=== PATIENT | male | born 1940 | race Caucasian/White ===

== ENCOUNTER → 2019-02-11 | Outpatient (CLI) | payer MEDICARE, OTHER ==
[~2019-02-11] MED LIST: ASPIRIN 81M81 MG/TA2 PO; FISH OIL1000 MG PO; FLOMAX 0.40.4 MG/CAP PO; LEVITRA20 MG PO; MELATONIN5 M1 SL; MURO-128 30 ML30 ML OP; NORCO 325 MG-7.1 TAB PO; PROSCAR 5MG5 MG PO; VIAGRA100 M1 PO
== END ==
LOC: COL.RAD 13:03
DX: N28.1 Cyst of kidney, acquired (principal); N39.0 Urinary tract infection, site not specified

== ENCOUNTER 2024-02-02 18:29 | Inpatient (IN) | payer MEDICARE, OTHER ==
[~2024-02-02] VITALS: Ht 172.7 cm; Wt 67.5 kg
[2024-02-02] MEDS ORDERED: NS 1,000 ML IV ONE ×2 (19:00→20:15)
[2024-02-02 19:41] LABS: MEAN CELL VOLUME 85 fl (80.0-100.0); MEAN CORPUSCULAR HEMOGLOBIN 31 pg (27-31); MEAN CORPUSCULAR HGB CONC 37 g/dl (33.0-37.0); MEAN PLATELET VOLUME 9.2 fl (7.4-10.4); PLATELET COUNT 196 K/mm3 (130-400); RED BLOOD COUNT 3.56 M/mm3 (4.20-5.60); REDCELL DISTRIBUTION WIDTH-CV 13.7 % (11.5-14.5)
[2024-02-02 19:57] LABS: ALBUMIN 3.1 g/dL (3.4-4.8); C-REACTIVE PROTEIN 15.35 mg/dL (0.00-0.50); CALCIUM 8.9 mg/dL (8.4-10.2); CREATININE, serum 1.25 mg/dL (0.72-1.25); POTASSIUM 4.3 mEq/L (3.5-4.5); TOTAL PROTEIN 6.2 g/dl (6.2-8.1)
[2024-02-02 19:59] LABS: HEMATOCRIT 30.1 % (42.0-52.0)
[2024-02-02 20:03] LABS: TROPONIN-I 0.012 ng/mL (0.00-0.033)
[2024-02-02 20:10] LABS: LYMPHOCYTE 5 % (20.0-51.0); NEUTROPHILS 82 % (42.0-75.2)
[2024-02-02] MEDS ORDERED: ZOCOR 40MG40 MG PO (21:17)
[2024-02-02] MEDS ORDERED: COZAAR 50MG50 MG/TAB PO (21:18)
[2024-02-02] MEDS ORDERED: cefTRIAXone 1 G in Water For Injection,Sterile 10 ML IV ONE (21:30)
[2024-02-02] MEDS ORDERED: Doxycycline Hyclate 100 MG in NS 150 ML IV ONE (21:30)
[2024-02-02 21:47] LABS: PH 5.5 (5.0-8.5); URINE APPEARANCE CLEAR (CLEAR/HAZY); URINE BLOOD 1+ (NEGATIVE); URINE COLOR Dark Yellow (YELLOW); URINE GLUCOSE NEGATIVE (NEGATIVE); URINE KETONE 1+ (NEGATIVE); URINE NITRATE NEGATIVE (NEGATIVE); URINE PROTEIN(semi-quant) 1+ (NEGATIVE)
[2024-02-02 21:59] LABS: COLLECTION METHOD CLEAN CATCH
[2024-02-02 22:00] LABS: MUCOUS PRESENT (NOT PRESENT); URINE BACTERIA RARE /hpf (NONE SEEN); URINE RBC NONE SEEN /hpf (0-2)
[2024-02-02 22:15] LABS: CALCIUM 8.2 mg/dL (8.4-10.2); CREATININE, serum 0.99 mg/dL (0.72-1.25)
[2024-02-02] MEDS ORDERED: NS 1,000 ML IV SCH (23:30)
[2024-02-02 23:48] VITALS: BP 127/65; PULSE 87; TEMP 98.6
[2024-02-03] VITALS (9 sets, daily range): BP systolic 114–154; BP diastolic 56–70; PULSE 87–102; TEMP 97.9–98.7
[2024-02-03] MEDS ORDERED: Acetaminophen 325 MG TAB PO PRN (00:15)
[2024-02-03 00:46] LABS: CALCIUM 8.1 mg/dL (8.4-10.2); CREATININE, serum 0.93 mg/dL (0.72-1.25); POTASSIUM 4.1 mEq/L (3.5-4.5)
--- NOTE | 2024-02-03 00:55 | NUR ---
Patient arrived to the floor at 2347 per cart from the ED, A/O but hard of hearing, on room air, denies pain or discomfort, admission assessment and intake done, medrec reviewed, hospital policies orientated, call light and personal items within reach, fall precautions in place, will continue to monitor.
[2024-02-03] MEDS ORDERED: Albuterol/Ipratropium 3 MG-0.5 MG/3 ML Neb Soln IH SCH (02:00)
[2024-02-03 05:12] LABS: CALCIUM 7.8 mg/dL (8.4-10.2); CREATININE, serum 0.82 mg/dL (0.72-1.25)
[2024-02-03] MEDS ORDERED: Doxycycline Monohydrate 100 MG CAP PO SCH (07:00)
[2024-02-03] MEDS ORDERED: SODIUM CHLORIDE 5% OP SCH (09:00)
[2024-02-03] MEDS ORDERED: predniSONE 20 MG TAB PO SCH (09:00)
[2024-02-03] MEDS ORDERED: Pantoprazole 40 MG in NS 10 ML IV SCH (09:00)
--- NOTE | 2024-02-03 09:35 | NUR ---
Patient is resting in bed, alert and oriented x 4, Dr Byers just saw him. Fluids restriction 1500 mls per day placed. Assessment completed. No other needs at this time. Call light within reach.
--- NOTE | 2024-02-03 12:48 | NUR ---
Data: Patient declined Spiritual Care visit offered during Service Cashier rounds. Patient did request help moving his food, which was on the bedside table, closer to him so that he could eat. Assessment: Patient was now ready to eat. Plan of Care: Service Cashier assisted in putting the bedside table in a position so that Patient was able to eat. Patient declined offer of prayer, opting to pray for himself, which he did before eating. Chaplains will remain available as needed/requested while Patient is admitted to the hospital.
--- NOTE | 2024-02-03 19:50 | NUR ---
Patient assessed at this time, see shift assessment, hard of hearing but very pleasant, denies pair of discomfort, still with IV infusing well on right forearm, INT to left hand infusing well, denies further needs, call light and personal items within reach, will continue to monitor.
[2024-02-03] MEDS ORDERED: Atorvastatin 20 MG TAB PO SCH (21:00)
[2024-02-03] MEDS ORDERED: Simvastatin 40 MG **** subs to Atorvastatin 20 MG PO SCH (21:00)
[2024-02-03] MEDS ORDERED: cefTRIAXone 1 G in Water For Injection,Sterile 10 ML IV SCH (21:00)
[2024-02-03 22:07] LABS: CALCIUM 7.5 mg/dL (8.4-10.2); CREATININE, serum 0.8 mg/dL (0.72-1.25); POTASSIUM 4.3 mEq/L (3.5-4.5)
[2024-02-03] MEDS ORDERED: Albuterol/Ipratropium 3 MG-0.5 MG/3 ML Neb Soln IH PRN (23:45)
[2024-02-04] VITALS (12 sets, daily range): BP systolic 102–158; BP diastolic 57–73; PULSE 78–97; TEMP 97.7–98.5
[2024-02-04 07:02] LABS: MEAN CELL VOLUME 86 fl (80.0-100.0); MEAN CORPUSCULAR HGB CONC 36 g/dl (33.0-37.0); MEAN PLATELET VOLUME 9.4 fl (7.4-10.4); PLATELET COUNT 200 K/mm3 (130-400); RED BLOOD COUNT 3.12 M/mm3 (4.20-5.60); REDCELL DISTRIBUTION WIDTH-CV 13.7 % (11.5-14.5)
[2024-02-04 07:05] LABS: HEMATOCRIT 26.7 % (42.0-52.0); HEMOGLOBIN 9.6 g/dl (13.5-18.0); MEAN CORPUSCULAR HEMOGLOBIN 31 pg (27-31)
[2024-02-04 07:08] LABS: CALCIUM 7.6 mg/dL (8.4-10.2); CREATININE, serum 0.73 mg/dL (0.72-1.25); POTASSIUM 3.7 mEq/L (3.5-4.5)
[2024-02-04 07:48] LABS: BAND 1 % (0-10); EOSINOPHIL 1 % (0-4); LYMPHOCYTE 12 % (20.0-51.0); NEUTROPHILS 83 % (42.0-75.2); PLATELET ESTIMATE NORMAL (NORMAL)
--- NOTE | 2024-02-04 08:23 | NUR ---
Late Entry: SW met with patient on 02/03/24 and called patient's daughter Maira to complete initial assessment for discharge planning, Note not showing in chart. Note re-entered today. SW met with patient to complete initial assessment for discharge planning. Patient stated he lives at home with his Mike ([phone]) who he also states is his DPOA. Patient states his sister in law Michelle is his alternate DPOA. Patient sees Dr. Carbajal as his PCP and uses [facility]. Pt denies using any DME and states he is independent and still drives. SW later called patient's daughter Maira ([phone]) to discuss discharge planning. She states that she and her son live with patient and his who has Alzheimer's dementia. Maira states that is not able to be DPOA and she and her sister Comfort ([phone]) are current DPOA. She will bring copy for patient's chart to update information. Maira verified PCP and pharmacy information. She states that patient has been using his 's walker recently. Discussed recommendation for rehab at discharge. Maira is agreeable to this. Medicare.gov list left this morning (02/04/24) for her to review and make SNF choice for referral. SW spoke with patient about SNF recommendation and he stated "I'm stronger now." SNF list left in room for Maira. SW will follow up later today for choice. Discharge plan: SNF vs Home
--- NOTE | 2024-02-04 09:00 | NUR ---
Patient sleeping on bed, easily arousable. States not pain or discomfort. He sais he is ready to go home. Getting fluids per orders. Denies any pain or discomfort. Assessment completed, meds given. No further needs at this time. Call light within reach.
--- NOTE | 2024-02-04 12:38 | NUR ---
Pt's daughter, Maira Wooten, came with DPOA documents. Copy placed in patient's chart.
--- NOTE | 2024-02-04 13:01 | NUR ---
MICHELLE met with patient and daughters in room to discuss discharge plan. Patient improving and stating that he wants to go home. Daughters feel that this is a better plan considering his with dementia remains at home. Discussed Medicare.gov list of HH providers. Daughter's want referral to [facility] since this is the same provider for HH for . Referral sent secure email. Daughters provided copy of patient's living will and updated DPOA documents for chart. Discharge plan: Home with HH
--- NOTE | 2024-02-04 20:15 | NUR ---
Patient in good spirits, he feels he's alot stronger, assessed at this time, denies pain or discomfort, denies further needs, call light and personal items within reach, will continue to monitor.
--- NOTE | 2024-02-04 23:21 | NUR ---
Patient's oxygen sat at 87% on room air, called RT, oxygen at 2LPM at this time, oxygen already at 91%, will monitor.
[2024-02-05] VITALS (7 sets, daily range): BP systolic 144–183; BP diastolic 66–78; PULSE 73–94; TEMP 97.9–98.3
--- NOTE | 2024-02-05 03:02 | NUR ---
PT FOUND AT 0226 BY RT WITH PULSE OX OFF FINGER. PULSE OX PLACED BACK ON FINGER, PT SATTING 92% ON 2L. RT CONTACTED BY RN AT 0303 THAT PT O2 WAS INCREASED TO 3L TO KEEP O2 SATS ABOVE 90%. BREATHING TX HELD DUE TO PT SLEEPING AND NOT WANTING TO BE AWAKEN.
[2024-02-05 07:13] LABS: BASO % 0.3 % (0.0-2.0); EOS # 0.2 K/mm3 (0.0-0.7); EOS % 1.1 % (0.0-4.0); HEMOGLOBIN 11.2 g/dl (13.5-18.0); LYMPH # 1.9 K/mm3 (1.2-3.4); LYMPH % 14.1 % (20.0-51.0); MEAN CELL VOLUME 85 fl (80.0-100.0); MEAN CORPUSCULAR HEMOGLOBIN 31 pg (27-31); MEAN CORPUSCULAR HGB CONC 36 g/dl (33.0-37.0); MEAN PLATELET VOLUME 9.1 fl (7.4-10.4); MONO # 1.3 K/mm3 (0.1-0.6); MONO % 9.8 % (1.7-9.3); PLATELET COUNT 242 K/mm3 (130-400); RED BLOOD COUNT 3.65 M/mm3 (4.20-5.60); REDCELL DISTRIBUTION WIDTH-CV 13.3 % (11.5-14.5)
[2024-02-05 07:26] LABS: CALCIUM 8.1 mg/dL (8.4-10.2); CREATININE, serum 0.72 mg/dL (0.72-1.25); POTASSIUM 3.8 mEq/L (3.5-4.5)
--- NOTE | 2024-02-05 08:00 | NUR ---
Pt. resting in bed upon entry. Administered scheduled meds per SEP. Performed shift assessment. Noted shallow respirations. However, pt. denies shortness of breath or difficulty breathing. All other findings WNL and pt. denied pain at this time. Assisted pt. to restroom. Gait is steady w/ walker. Pt. voided pale yellow, clear urine. Pt. returned to bed w/ call light in reach. No complaints or needs at this time.
[2024-02-05] MEDS ORDERED: Losartan 50 MG TAB PO SCH (09:23)
[2024-02-05] MEDS ORDERED: PREDNISONE20 MG PO (09:29)
[2024-02-05] MEDS ORDERED: PROAIR HFA0.09 MG/AC IH (09:30)
[2024-02-05] MEDS ORDERED: MONODOX100 PO (09:30)
--- NOTE | 2024-02-05 09:50 | NUR ---
92% @ 3.5 LPM NC A REST IN BED
--- NOTE | 2024-02-05 09:52 | NUR ---
MICHELLE attended clincial rounds. Patient stable for discharge to home today. SW notified that patient is requiring oxygen for discharge. MICHELLE sent order for oxgyen and FWW to [facility] to be delivered to patient's room. Discharge orders sent secure email to [facility]. MICHELLE met with patient to review Medicare IM form. Patient agreeable to discharge and signed form. Original on chart and copy to patient. Discharge plan: Home with HH
--- NOTE | 2024-02-05 14:40 | NUR ---
Assisted pt.into personal clothes for discharge. MANISH Gomez provided discharge instructions to patient and family and answered questions. Pt. and family verbalize understanding. Family requested change of pharmacy. RUDOLPH Cronin notified and change made. INT discontinued. Catheter tip intact. Pt. and family waiting for [facility] Home feeder associate to provide further discharge instructions regarding Rx oxygen. [facility] contacted and en route to facility. Pt. resting in bed w/ family at bedside and call light in reach.
== END 2024-02-05 15:00 | disposition home health service (06) | DRG 872 ==
LOC: COL.ER 18:29 → SURG 21:25 → MEDICAL 02-05 08:42
PROVIDERS: Emergency Medicine; Nurse Practitioner Family; ADMIT Internal Medicine
DX: A41.9 Sepsis, unspecified organism (principal); E87.1 Hypo-osmolality and hyponatremia; N17.9 Acute kidney failure, unspecified; E87.20 Acidosis, unspecified; E87.8 Other disorders of electrolyte and fluid balance, not elsewhere classified; R53.1 Weakness; D64.9 Anemia, unspecified; I10 Essential (primary) hypertension; E78.5 Hyperlipidemia, unspecified
CPT/HCPCS: J0696; J1650; J2470; J7030; J7512